=== PATIENT | male | born 1980 | race Caucasian/White ===

== ENCOUNTER 2018-03-11 12:05 | Emergency (ER) | payer OTHER ==
[~2018-03-11] VITALS: Ht 190.5 cm; Wt 181.4 kg
[~2018-03-11 12:05] MED LIST: DAYPRO600 M1 PO; VICODIN 5-3001 EACH PO
[2018-03-11] MEDS ORDERED: ROBITUSSIN DM 105 ML PO (12:44)
[2018-03-11] MEDS ORDERED: PREDNISONE10 MG PO (12:44)
[2018-03-11] MEDS ORDERED: FLONASE ALLERG9.9 ML NAS (12:44)
[2018-03-11] MEDS ORDERED: CLARITIN10 MG PO (12:44)
== END 2018-03-11 13:35 | disposition home or self-care (01) ==
LOC: ED 12:05
DX: S27.818A Other injury of esophagus (thoracic part), initial encounter (principal); R03.0 Elevated blood-pressure reading, without diagnosis of hypertension; X58.XXXA Exposure to other specified factors, initial encounter; Y93.89 Activity, other specified; Y92.89 Other specified places as the place of occurrence of the external cause; Y99.8 Other external cause status

== ENCOUNTER → 2019-09-24 | Outpatient (CLI) | payer BC ==
[~2019-09-24] MED LIST changes: +CLARITIN10 MG PO; +FLONASE ALLERG9.9 ML NAS; +PREDNISONE10 MG PO; +ROBITUSSIN DM 105 ML PO
--- NOTE | ~2019-09-24 | EKG ---
[place], [place] ELECTROCARDIOGRAM REPORT NAME: RUSSELL ROMERO UNIT #: [id number] ROOM: DOCTOR: EPIPHANY DRAFT REPORT BIRTHDATE: [birth year] [facility] Test Date: 2019-09-24 Test Time: 11:58:19 Pat Name: RUSSELL ROMERO Department: Room: Gender: Floor Installer: Jennifer Cline : 1980 Requested By: LAUREL CHANDLER Order Number: [id number] Reading MD: Anant Clark MD Measurements Intervals [place] Rate: 72 P: 25 [place]: 189 QRS: -24 QRSD: 109 T: 53 QT: 394 QTc: 432 Interpretive Statements Sinus rhythm Consider left atrial enlargement Inferior infarct, old No previous ECG available for comparison Electronically Signed On 09-26-2019 6:36:20 PST by Anant Clark MD CM:EKGRPT:ELECTROCARDIOGRAM REPORT [id number] LAUREL RODRIGUEZ DRAFT REPORT LAUREL CHANDLER
== END | disposition home or self-care (01) ==
LOC: CARD 11:46
DX: Z51.81 Encounter for therapeutic drug level monitoring (principal); Z79.899 Other long term (current) drug therapy

== ENCOUNTER → 2020-10-02 | Outpatient (CLI) | payer BC | END | disposition home or self-care (01) | LOC: COVID19 15:34 | PROVIDERS: ATTEND Internal Medicine Critical Care Medicine | DX: Z20.828 Contact with and (suspected) exposure to other viral communicable diseases (principal) ==